=== PATIENT | male | born 1965 | race Caucasian/White ===

== ENCOUNTER 2018-10-24 22:48 | Emergency (ER) | payer OTHER ==
[~2018-10-24] VITALS: Ht 182.9 cm; Wt 149.2 kg
[2018-10-24 22:51] VITALS: Ht 182.9 cm; Wt 149.2 kg
[2018-10-25 00:34] VITALS: BP 118/71
== END 2018-10-25 00:34 | disposition home or self-care (01) ==
LOC: ED 22:48
DX: J18.8 Other pneumonia, unspecified organism (principal); E11.9 Type 2 diabetes mellitus without complications; E78.00 Pure hypercholesterolemia, unspecified
CPT/HCPCS: Q0092